=== PATIENT | male | born 1970 | race Caucasian/White ===

== ENCOUNTER 2024-01-08 21:42 | Emergency (ER) | payer OTHER ==
[2024-01-08 22:57] VITALS: BMI 31.3
[2024-01-08 23:25] VITALS: BP 128/90; PULSE 97; RESP 18; TEMP 98
== END 2024-01-09 00:53 | disposition home or self-care (01) ==
LOC: FER 21:42
DX: R05.9 Cough, unspecified (principal); J20.9 Acute bronchitis, unspecified; Z20.822 Contact with and (suspected) exposure to COVID-19
CPT/HCPCS: 0241U-QW; 99283-25